=== PATIENT | male | born 1965 ===

== ENCOUNTER 2025-06-08 11:48 | Emergency (ER) | payer OTHER, SELFPAY ==
--- NOTE | ~2025-06-08 | XR_ITS ---
EXAMINATION: XR LUMBOSACRAL SPINE CLINICAL INFORMATION: injury at work, lumbar back pain COMPARISON: None available. TECHNIQUE: Three views of the lumbosacral spine. FINDINGS: There is no significant scoliosis. There is a normal lumbar lordosis. There is no subluxation or malalignment. There is no fracture, compression deformity, or suspicious bone lesion. Severe degenerative disc changes at L5-S1 with sclerosis of the endplates. There is otherwise mild to moderate diffuse disc degeneration. There are multilevel bulky ventral disc and vertebral osteophytes. There is normal facet alignment. There are degenerative hypertrophic facet changes spanning L4-S1. Sacrum is intact. 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 Soft tissues demonstrate vascular calcifications but are otherwise normal. XR/XR lumbar spine 2-3V IMPRESSION: 1. No acute finding of the lumbar spine. 2. Moderate lumbar spondylosis most significant at L5-S1. Electronically signed by: Eduardo Bright MD 06/08/2025 01:47 PM EDT RP
[2025-06-08 12:02] VITALS: BP 141/63; BP 168/100; PULSE 70; PULSE 71; RESP 18; TEMP 36.4; O2SAT 96; O2SAT 97; BMI 30.4
--- NOTE | 2025-06-08 12:54 | ED_ITS ---
HPI - Back Pain/Injury General Chief Complaint: Back Pain/Injury Stated Complaint: lower back pain Time Seen by Provider: 06/08/25 12:39 Source: patient, RN notes reviewed and old records reviewed Mode of arrival: EMS Limitations: no limitations History of Present Illness ED Provider: GARY Ashton HPI Narrative: 59-year-old male with medical history of HTN, HLD, presents to the ED by EMS due to lumbar back pain. 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 Denies saddle paresthesias, bowel/bladder incontinence, history of IVDU. Related Data Previous Rx's ?Medication ?Instructions ?Recorded cyclobenzaprine 5 mg tablet 5 mg PO TID PRN muscle spa sm #15 06/08/25 tabs diazepam 5 mg tablet (Valium) 5 mg PO TID PRN muscle s pasm #9 06/08/25 tabs ketorolac 10 mg tablet 10 mg PO Q8H PRN pain 3 days #9 06/08/25 tabs Allergies Allergy/AdvReac Type Severity Reaction Status Date / Time No Known Allergies Allergy Verified 06/08/25 12:05 Review of Systems Review of Systems: CONST: Negative for fever, body aches and chills. HENT: Negative for neck pain/stiffness, headache, congestion, sore throat, swelling. EYES: Negative for discharge/pain or vision changes. RESP: Negative for cough/hemoptysis and shortness of breath. CV: Negative chest pain, difficulty breathing, palpitations. ABD: Negative pain, nausea, vomiting. : Negative increase frequency, dysuria, blood in urine or stool. MUSC: Negative for muscle aches, edema. POS lumbar back pain, L side worse SKIN: Negative rash, lesions/sores. NEURO: Negative headache, dizziness, weakness. Yes all other systems are reviewed and are negative PMF Past Medical History Attestation statement: The following information was validated with the patient. Source: old records reviewed and nursing notes reviewed Social History Social History Advance Directives: No Advance Directives Information Provided: Yes Physical Exam Vital Signs: Vital Signs: Last Vital Signs Temp 97.8 F 10/08/25 14:00 Pulse 71 06/08/25 14:00 Resp 18 06/08/25 14:00 BP 138/60 06/08/25 14:00 Pulse Ox 96 06/08/25 14:00 O2 Del Method Room Air 06/08/25 14:00 BMI result Body Mass Index 30.4 GENERAL APPEARANCE: ?AxOx4, no acute distress. HEENT: ?NC, AT. MMM. EOMI, clear conjunctiva, oropharynx clear. NECK: ?Supple without lymphadenopathy.? No stiffness or restricted ROM. HEART:? Normal rate and regular rhythm, normal S1/S2, no m/r/g LUNGS:? CTAB, moving air well. No crackles or wheezes are heard. ABDOMEN: ?Soft, nontender, nondistended BACK: No CVAT, no obvious deformity. TTP of B/L lumbar paraspinal muscles, no midline tenderness, no bony step offs palpated, no overlying skin changes or rashes. ROM is limited due to pain, patient able to perform flexion, extension and lateral bending with pain on movements. SILT, able to ambulate with slow steady gait due to pain. EXTREMITIES: ?Without cyanosis, clubbing or edema. NEUROLOGICAL: ?Grossly nonfocal. Alert and oriented, moving all 4 extremities. Skin: ?Warm and dry without any rash. Medications Administered Discontinued Medications Generic Name Dose Route Start Last Admin Trade Name Williamq PRN Reason Stop Dose Admin Diazepam 5 mg 06/08/25 13:17 06/08/25 14:06 Diazepam 10 Mg/2 Ml Cartridge IVPUSH 06/08/25 13:18 5 mg STAT STA Administration Acetaminophen 1,000 mg in 100 mls @ 400 mls/hr 06/08/25 13:17 06/08/25 14:05 Ofirmev IV 06/08/25 13:31 400 mls/hr ONCE ONE Administration Ketorolac Tromethamine 15 mg 06/08/25 13:17 06/08/25 14:05 Ketorolac Tromethamine 15 Mg/Ml Vial IVPUSH 06/08/25 13:18 15 mg ONCE ONE Administration Medical Decision Making Medical Decision Making MDM Narrative: 59-year-old male with medical history of HTN, HLD, presents to the ED by EMS due to lumbar back pain. 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 Denies saddle paresthesias, bowel/bladder incontinence, history of IVDU. VS on initial observation-BP 138/60, pulse rate of 71, respiratory rate of 18, afebrile with oral temp of 97.8?, O2 saturation 96% on room air. On physical exam TTP of B/L lumbar paraspinal muscles, no midline tenderness, no bony step offs palpated, no overlying skin changes or rashes. ROM is limited due to pain, patient able to perform flexion, extension and lateral bending with pain on movements. SILT, able to ambulate with slow steady gait due to pain. XR lumbar spine reveals moderate lumbar spondylosis most significant at L5-S1, without fracture or dislocation. Patient was medicated with 1 g IV Tylenol, 5 mg IV Valium, 15 mg Toradol, with good effect on his pain. Patient now able to ambulate and move about more freely. Patient is afebrile, no history of IVDU, nontoxic appearing, ROM intact, patient able to ambulate with slow and steady gait, low suspicion for SEA, cauda equina, fracture. I counseled patient to follow up with PCP regarding degenerative changes of spine, and to ensure resolution of symptoms. Patient will be discharged with 5 days of Flexeril, 3 days of Valium for muscle spasm, and toradol for inflammation and pain management. I counseled patient on gentle stretching, heat packs, and taking 500 mg of Tylenol, and 400 mg of ibuprofen every 6 hours once toradol is finished. Patient well enough to go home for self-care, patient is in agreement with the plan. Differential Diagnosis Differential Diagnoses: The differential diagnosis associated with the presentation includes SEA Cauda equina Fracture Lumbar strain Admission/Observation Consideration of admission/observation: Escalation of care including admission/observation considered Independent Interpretation I performed an independent interpretation of an: Plain X-Ray Interpretation: XR lumbar spine negative for fracture, dislocation however does show degenerative changes, I agree with the radiologist's interpretation Radiology Impression Discussion of test interpretation with radiology: I have reviewed the radiologist's reading. Radiologist Impression: XR lumbar spine FINDINGS: There is no significant scoliosis. There is a normal lumbar lordosis. There is no subluxation or malalignment. There is no fracture, compression deformity, or suspicious bone lesion. Severe degenerative disc changes at L5-S1 with sclerosis of the endplates. There is otherwise mild to moderate diffuse disc degeneration. There are multilevel bulky ventral disc and vertebral osteophytes. There is normal facet alignment. There are degenerative hypertrophic facet changes spanning L4-S1. Sacrum is intact. 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 Soft tissues demonstrate vascular calcifications but are otherwise normal. XR/XR lumbar spine 2-3V IMPRESSION: 1. No acute finding of the lumbar spine. 2. Moderate lumbar spondylosis most significant at L5-S1. Electronically signed by: Eduardo Bright MD 06/08/2025 01:47 PM EDT RP Dictated By: Eduardo Bright MD Signed By: <Electronically signed by Eduardo Bright MD in OV> 06/08/25 [id number] Independent Historian Clinical information obtained from an independent historian. History obtained from or confirmed by: EMS External Record Review External record reviewed: Inpatient record, Office record and Outpatient record Chronic Conditions Patient?s care impacted by: Hypertension and Other (HLD) Discharge Plan Discharge Clinical Impression: Strain of lumbar region Patient Disposition: Home, Self-Care Instructions: Low Back Strain (ED), Lower Back Exercises (ED) Additional Instructions: You were evaluated in the ED due to lumbar back pain after bending down at work today. The x-ray of your lumbar spine was negative for fracture or dislocation however did show degenerative disc changes at L5-S1 of the lumbar spine. You were medicated with 1 g IV Tylenol, 15 mg Toradol, and 5 mg of Valium with good effect on your pain. You are being prescribed a 5 day course of Flexeril which is a muscle relaxer, 3 days of Toradol which is a strong NSAID for pain management, while on this medication you can take 500 mg of Tylenol every 6 hours. While on Toradol, do not take any other NSAIDs such as ibuprofen, Aleve, Motrin, or Naprosyn. Once you finish the Toradol, you can then take 500 mg of Tylenol, and 400 mg of ibuprofen every 6 hours. Additionally you should use heat over the affected areas, and do gentle stretching as you heel. I recommend that you follow up with your primary care doctor to ensure resolution of your symptoms Please return to the emergency department if you experience fevers over 100.4?, increased back pain, inability to walk, loss of sensation to your inner thighs and/or general region, bowel/bladder incontinence or any new/worsening/concerning symptoms. Prescriptions: New ketorolac 10 mg tablet 10 mg PO Q8H PRN (Reason: pain) 3 Days Qty: 9 0RF Rx Instructions: patient was given 15mg IV toradol for lumbar back pain while in emergency department. diazepam [Valium] 5 mg tablet 5 mg PO TID PRN (Reason: muscle spasm) Qty: 9 0RF cyclobenzaprine 5 mg tablet 5 mg PO TID PRN (Reason: muscle spasm) Qty: 15 0RF Print Language: Thai
[2025-06-08 14:00] VITALS: BP 138/60; PULSE 71; RESP 18; TEMP 36.6; O2SAT 96
[2025-06-08] MEDS: diazePAM 10 MG/2 ML CARTRIDGE 5 MG IVPUSH (14:06)
[2025-06-08 15:23] VITALS: BP 138/60; PULSE 71; RESP 18; TEMP 36.6; O2SAT 96
--- NOTE | 2025-06-16 15:55 | PC.NURSE ---
Late entry. Acetaminophen was complete and infused at 1327 on 06/08/25. No waste to record.
== END 2025-06-08 15:23 | disposition home or self-care (01) ==
PROVIDERS: Emergency Provider Emergency Medicine
DX: S39.012A Strain of muscle, fascia and tendon of lower back, initial encounter (principal); M47.816 Spondylosis without myelopathy or radiculopathy, lumbar region; I10 Essential (primary) hypertension; X58.XXXA Exposure to other specified factors, initial encounter; Y93.9 Activity, unspecified; Y92.512 Supermarket, store or market as the place of occurrence of the external cause; Y99.0 Civilian activity done for income or pay
CPT/HCPCS: 72100; 96374; 96375; 99284; J0131; J1885; J3360

== ENCOUNTER → 2025-06-08 13:17 | Outpatient (BNV) | payer OTHER, SELFPAY | PROVIDERS: Emergency Provider Emergency Medicine; Visit Provider Radiology Diagnostic Radiology | DX: M47.816 Spondylosis without myelopathy or radiculopathy, lumbar region (principal) | CPT/HCPCS: 72100 ==